=== PATIENT | female | born 1930 | race Caucasian/White ===

== ENCOUNTER 2016-12-21 06:41 | Day surgery (SDC) | payer MEDICARE, BC ==
[2016-12-21] MEDS ORDERED: Lactated Ringers 1,000 ML IV SCH (06:45)
[2016-12-21] MEDS ORDERED: Midazolam 1 MG/ML 2 ML SDV IV ONE (08:00)
[2016-12-21] MEDS ORDERED: Propofol 200 MG/20 ML SDV IV ONE (08:00)
--- NOTE | 2016-12-21 10:43 | OR ---
DATE OF OPERATION: 12/21/2016 SURGEON: Teofilo Mario MD PROCEDURE PERFORMED: Colonoscopy with cold forceps biopsy. PREOPERATIVE DIAGNOSIS: Bleeding per rectum. POSTOPERATIVE DIAGNOSIS: Descending colon polyp x2 and internal hemorrhoids. INDICATIONS FOR PROCEDURE: This is an 86-year-old white female, who presents with a complaint of bright-red blood in her stool. She was offered and accepted a colonoscopy. DESCRIPTION OF PROCEDURE: After an excellent IV sedation was administered, digital rectal exam was performed. No marked abnormality was noted. Flexible colonoscope was inserted and advanced to the cecum without difficulty. The following findings were noted. The prep was excellent. Ascending colon, unremarkable. Transverse colon, unremarkable. Descending colon, unremarkable, except for a 2 small polyps roughly about 3 mm in size each. Biopsied and submitted in one container with cold biopsy forceps. Sigmoid was unremarkable. Rectum and anus were unremarkable. On retroflexing the scope, there was evidence of internal hemorrhoids but there was no evidence of bleeding. The colon was deflated. Scope was removed. The patient tolerated the procedure well and was taken to recovery in good condition. /[id number] /MODL
[2016-12-21 11:50] VITALS: BP 124/55
== END 2016-12-21 09:42 | disposition home or self-care (01) ==
LOC: FB.SDS 06:41
PROVIDERS: ATTEND Surgery
DX: D12.4 Benign neoplasm of descending colon (principal); K64.8 Other hemorrhoids; I10 Essential (primary) hypertension; E87.1 Hypo-osmolality and hyponatremia; Z79.899 Other long term (current) drug therapy
CPT/HCPCS: 00810; 45380; 88305; J2250; J2704; J7120